=== PATIENT | male | born 1965 | race Caucasian/White ===

== ENCOUNTER 2017-01-15 08:18 | Emergency (ER) | payer OTHER ==
[~2017-01-15] VITALS: Ht 167.6 cm; Wt 56.0 kg
[~2017-01-15 08:18] MED LIST: BACL10TA PO; GABA300C16 PO; HYDR-3720 PO
[2017-01-15 08:20] VITALS: Ht 167.6 cm; Wt 56.0 kg
[2017-01-15] MEDS ORDERED: KETOROLAC 30 MG INJ IV STA (08:53)
[2017-01-15] MEDS ORDERED: SOD CHLORIDE 0.9% 1,000 ML IV STA (08:53)
[2017-01-15] MEDS ORDERED: ONDANSETRON 4 MG INJ IV STA (08:53)
[2017-01-15 09:19] LABS: BASOPHIL # 0.1 10^3/ul (0.0-0.1); BASOPHILS % 0.7 % (0.0-2.0); EOSINOPHILS # 0.2 10^3/ul (0.0-0.5); EOSINOPHILS % 2.7 % (0.0-7.0); HEMOGLOBIN 13.6 g/dl (14.0-18.0); LYMPHOCYTES # 1.9 10^3/ul (0.8-2.9); MEAN CORPUSCULAR HEMOGLOBIN 32.4 pg (29.0-33.0); MEAN CORPUSCULAR VOLUME 95.2 fl (82.0-101.0); MEAN PLATELET VOLUME 10.5 fl (7.4-10.4); MONOCYTE # 0.7 10^3/ul (0.3-0.9); MONOCYTES % 9.3 % (0.0-11.0); PLATELET COUNT 231 10^3/UL (140-415); RED CELL DISTRIBUTION WIDTH 12.3 % (11.5-14.5); WHITE BLOOD COUNT 7.6 10^3/ul (4.8-10.8)
[2017-01-15 09:38] LABS: ADD UMIC YES; UR ASCORBIC ACID NEGATIVE (NEGATIVE); UR BACTERIA FEW /HPF (NONE SEEN); UR BILIRUBIN (Dip) NEGATIVE (NEGATIVE); UR BLOOD (Dip) 3+ mg/dL (NEGATIVE); UR CLARITY CLEAR (CLEAR); UR COLOR YELLOW (YELLOW); UR GLUCOSE (Dip) NEGATIVE (NEGATIVE); UR KETONES (Dip) NEGATIVE (NEGATIVE); UR LEUKOCYTE ESTERASE (Dip) NEGATIVE Leu/ul (NEGATIVE); UR MUCUS FEW /HPF (NONE SEEN); UR NITRITE (Dip) NEGATIVE (NEGATIVE); UR RBC > 182 /HPF (0-5); UR SPECIFIC GRAVITY (Dip) 1.006 (1.003-1.030); UR TOTAL PROTEIN (Dip) NEGATIVE (NEGATIVE); UR UROBILINOGEN (Dip) NEGATIVE (NEGATIVE)
[2017-01-15 09:47] LABS: ALBUMIN 4.2 g/dl (3.3-4.9); ALBUMIN/GLOBULIN RATIO 1.55; CALCIUM 9.3 mg/dl (8.4-10.2); CREATININE 0.97 mg/dl (0.61-1.24); POTASSIUM 4.1 mmol/L (3.5-5.1); TOTAL PROTEIN 6.9 g/dl (6.1-8.1)
--- NOTE | 2017-01-15 10:07 | ERA ---
ER Documentation Chief Complaint Date/Time DATE: 01/15/17 TIME: 09:59 Chief Complaint LEFT FLANK PAIN SINCE YESTERDAY BLOOD IN URINE, HX KIDNEY STONES HPI This is a 51-year-old male with a past medical history of multiple frequent recurrent kidney stones who is presenting with concerns of a kidney stone. The patient has endorsed mild right sided flank discomfort but no significant pain. His biggest concern is that he developed hematuria yesterday. He describes it as bright red blood. He was placed on an IV fluid in the emergency department, and he states that his urine has nearly completely cleared up, which she feels is because of fluid he received. At this time, the patient denies any fever or chills. He has had some mild nausea, but that went away. He has not vomited. He denies chest pain or trouble breathing. He denies abdominal pain or radiating flank pain. He denies any changes to bowel movements. He denies any weakness or numbness or tingling to the face or extremities. ROS All systems reviewed and are negative except as per history of present illness. Medications Home Meds Reported Medications Hydrocodone Bit-Acetaminophen* ([place]*) 7.5-325 Tablet, 1 TAB PO TID Y for PAIN , TAB 11/29/15 Gabapentin* (Gabapentin*) 300 Mg Capsule, 300 MG PO BID, CAP 09/14/14 Baclofen* (Baclofen*) 10 Mg Tablet, 10 MG PO BID, TAB 09/14/14 Allergies Allergies: Coded Allergies: prochlorperazine edisylate (Verified Allergy, Unknown, 01/15/17) prochlorperazine maleate (Verified Allergy, Unknown, 01/15/17) PMhx/Soc History of Surgery: Yes (LT FEMUR, APPENDECTOMY) Anesthesia Reaction: No Hx Neurological Disorder: No Hx Respiratory Disorders: No Hx Cardiac Disorders: No Hx Psychiatric Problems: No Hx Miscellaneous Medical Probl: Yes (hx of kidney stones) Hx Alcohol Use: No Hx Substance Use: Yes (DAILY MARIJUANA ) Hx Tobacco Use: Yes (1-2 CIGARETTES/DAY ) Smoking Status: Current every day smoker FmHx Family History: No diabetes Physical Exam Vitals Vital Signs Date Time Temp Pulse Resp B/P Pulse Ox O2 Delivery O2 Flow Rate FiO2 01/15/17 08:20 98.5 83 20 144/87 98 Physical Exam Const: No apparent distress, well-nourished, well-developed Head: Atraumatic Eyes: Normal Conjunctiva ENT: Normal External Ears, Nose and Mouth. Neck: Full range of motion..~ No meningismus. Resp: Clear to auscultation bilaterally Cardio: Regular rate and rhythm, no murmurs Abd: Soft, non tender, non distended. Normal bowel sounds Skin: No petechiae or rashes Back: No midline or flank tenderness Ext: No cyanosis, or edema Neur: Awake and alert Psych: Normal Mood and Affect Result Diagram: 01/15/1790401/15/17904 Results 24 hrs Laboratory Tests Test 01/15/17 09:05 White Blood Count 7.610^3/ul Red Blood Count 4.2010^6/ul Hemoglobin 13.6g/dl Hematocrit 40.0% Mean Corpuscular Volume 95.2fl Mean Corpuscular Hemoglobin 32.4pg Mean Corpuscular Hemoglobin Concent 34.0g/dl Red Cell Distribution Width 12.3% Platelet Count 64069^3/UL Mean Platelet Volume 10.5fl Neutrophils % 62.0% Lymphocytes % 25.0% Monocytes % 9.3% Eosinophils % 2.7% Basophils % 0.7% Nucleated Red Blood Cells % 0.0/100WBC Neutrophils # (Manual) 4.710^3/ul Lymphocytes # 1.910^3/ul Monocytes # 0.710^3/ul Eosinophils # 0.210^3/ul Basophils # 0.110^3/ul Nucleated Red Blood Cells # 0.010^3/ul Urine Color YELLOW Urine Clarity CLEAR Urine pH 6.0 Urine Specific [place] 1.006 Urine Ketones NEGATIVEmg/dL Urine Nitrite NEGATIVEmg/dL Urine Bilirubin NEGATIVEmg/dL Urine Urobilinogen NEGATIVEmg/dL Urine Leukocyte Esterase NEGATIVELeu/ul Urine Microscopic RBC > 182/HPF Urine Microscopic WBC 11/HPF Urine Bacteria FEW/HPF Urine Mucus FEW/HPF Urine Hemoglobin 3+mg/dL Urine Glucose NEGATIVEmg/dL Urine Total Protein NEGATIVEmg/dl Sodium Level 143mmol/L Potassium Level 4.1mmol/L Chloride Level 109mmol/L Carbon Dioxide Level 27mmol/L Anion Gap 11 Blood Urea Nitrogen 12mg/dl Creatinine 0.97mg/dl Glucose Level 83mg/dl Calcium Level 9.3mg/dl Total Bilirubin 0.0mg/dl Direct Bilirubin 0.00mg/dl Indirect Bilirubin 0.0mg/dl Aspartate Amino Transf (AST/SGOT) 26IU/L Alanine Aminotransferase (ALT/SGPT) 29IU/L Alkaline Phosphatase 86IU/L Total Protein 6.9g/dl Albumin 4.2g/dl Globulin 2.70g/dl Albumin/Globulin Ratio 1.55 Current Medications Medications (Trade) Dose Ordered Sig/Hank Route PRN Reason Start Time Stop Time Status Last Admin Dose Admin Sodium Chloride (NS) 1,000 ml @ 1,000 mls/hr Q1H STAT IV 01/15/17 08:53 01/15/17 09:52 DC 01/15/17 09:03 Ondansetron HCl (Zofran Inj) 4 mg ONCE STAT IV 01/15/17 08:53 01/15/17 08:54 DC 01/15/17 09:02 Ketorolac Tromethamine (Toradol) 30 mg ONCE STAT IV 01/15/17 08:53 01/15/17 08:54 DC 01/15/17 09:02 Procedures/MDM The patient's presenting with flank pain. The patient has a history of kidney stones, and I do suspect a kidney stone today. Blood work will be obtained and reviewed to evaluate for signs of infection as well as renal function. In discussing with the patient, the decision was made to avoid a CAT scan if possible as he has had many CAT scans in the past, and his stones typically pass on their own anyway. The patient's blood work showed no leukocytosis or left shift. The patient is not anemic. The patient's CMP is unremarkable. The patient's renal function is within normal limits. The patient does not appear dehydrated, and his BUN is normal. The patient's urinalysis does indicate hematuria. There were significant amount of RBCs in the urine. There were 11 WBCs with few bacteria, but at this time I do not suspect an infection. A urine culture will be sent off, and the patient will need to be notified if the culture comes back positive. The patient was given IV fluids, Toradol and Zofran in the emergency department. His discomfort resolved. The patient is concerned of taking ibuprofen secondary to epigastric discomfort when taking it. We will trial a prescription of naproxen. The patient will also be given a prescription for Flomax. The patient does have a urologist and will call to schedule an appointment. He should follow-up with his urologist or his primary care physician in 2-3 days. He will be given precautions with which to return to the emergency department. Departure Diagnosis: Primary Impression: Hematuria Qualified Code: R31.9 - Hematuria, unspecified type Additional Impression: Flank pain Condition: CARLEE Vera MD Jan 15, 2017 10:07
[2017-01-15] MEDS ORDERED: TAMS-14 PO (11:57)
[2017-01-15] MEDS ORDERED: NAPR-260 PO (11:57)
[2017-01-15 12:27] VITALS: BP 148/61; PULSE 56; RESP 20
== END 2017-01-15 12:29 | disposition home or self-care (01) ==
LOC: E/R 08:18
DX: R31.9 Hematuria, unspecified (principal)
CPT/HCPCS: 36415; 80053; 81001; 85025; 96374; 96375; J1885; J2405; J7030; Z7502

== ENCOUNTER 2017-03-12 14:40 | Emergency (ER) | payer OTHER ==
[~2017-03-12] VITALS: Ht 172.7 cm; Wt 58.1 kg
[~2017-03-12 14:40] MED LIST changes: +NAPR-260 PO; +TAMS-14 PO
[2017-03-12 14:42] VITALS: Ht 172.7 cm; Wt 58.1 kg
[2017-03-12] MEDS ORDERED: HYDROmorphONE 1 MG/ML SYG ONE (16:57)
[2017-03-12] MEDS ORDERED: ONDANSETRON 4 MG INJ ONE (16:57)
[2017-03-12] MEDS ORDERED: KETOROLAC 30 MG INJ ONE (17:12)
[2017-03-12] MEDS ORDERED: KETOROLAC 30 MG INJ IV SCH (18:00)
[2017-03-12] MEDS ORDERED: HYDROmorphONE 1 MG/ML SYG IV ONE (18:00)
[2017-03-12] MEDS ORDERED: ONDANSETRON 4 MG INJ IV SCH (18:00)
--- NOTE | 2017-03-12 19:26 | ERD ---
ER Documentation Chief Complaint Chief Complaint LT SIDE FLANK PAIN WITH NAUSEA , VOMITING X 3 HPI Patient is a 52-year-old male with a history of kidney stone who presents with left-sided flank pain. The patient says that he has a history of kidney stones and that this would be his "second stone in 1 week". He said that he missed his urology appointment scheduled for today with Dr. Rodríguez. He missed the appointment because of the pain so he came to the emergency department. He denies fevers. The pain is sharp in nature and left-sided and comes and goes. ROS All systems reviewed and are negative except as per history of present illness. Medications Home Meds Active Scripts Naproxen* (Naprosyn*) 500 Mg Tablet, 500 MG PO BID Y for PAIN AND/OR INFLAMMATION, #30 TAB Prov:CARLEE TINEO MD 01/15/17 Tamsulosin Hcl* (Flomax*) 0.4 Mg Cap.er.24h, 0.4 MG PO QPM, #14 CAP Prov:CARLEE TINEO MD 01/15/17 Reported Medications Hydrocodone Bit-Acetaminophen* ([place]*) 7.5-325 Tablet, 1 TAB PO TID Y for PAIN , TAB 11/29/15 Gabapentin* (Gabapentin*) 300 Mg Capsule, 300 MG PO BID, CAP 09/14/14 Baclofen* (Baclofen*) 10 Mg Tablet, 10 MG PO BID, TAB 09/14/14 Allergies Allergies: Coded Allergies: prochlorperazine edisylate (Verified Allergy, Unknown, 01/15/17) prochlorperazine maleate (Verified Allergy, Unknown, 01/15/17) PMhx/Soc History of Surgery: Yes (LT FEMUR, APPENDECTOMY) Anesthesia Reaction: No Hx Neurological Disorder: No Hx Respiratory Disorders: No Hx Cardiac Disorders: No Hx Psychiatric Problems: No Hx Miscellaneous Medical Probl: Yes (hx of kidney stones) Hx Alcohol Use: No Hx Substance Use: Yes (DAILY MARIJUANA ) Hx Tobacco Use: Yes (1-2 CIGARETTES/DAY ) FmHx Family History: No diabetes Physical Exam Vitals Vital Signs Date Time Temp Pulse Resp B/P Pulse Ox O2 Delivery O2 Flow Rate FiO2 03/12/17 14:42 97.9 68 18 146/82 98 Physical Exam Const: Moderate distress secondary to pain Head: Atraumatic Eyes: Normal Conjunctiva ENT: Normal External Ears, Nose and Mouth. Neck: Full range of motion..~ No meningismus. Resp: Clear to auscultation bilaterally Cardio: Regular rate and rhythm, no murmurs Abd: Soft, non tender, non distended. Normal bowel sounds Skin: No petechiae or rashes Back: No midline or flank tenderness Ext: No cyanosis, or edema Neur: Awake and alert Psych: Normal Mood and Affect Results 24 hrs Current Medications Medications (Trade) Dose Ordered Sig/Hank Route PRN Reason Start Time Stop Time Status Last Admin Dose Admin Hydromorphone HCl (Dilaudid) 1 mg ONCE ONCE IV 03/12/17 18:00 03/12/17 18:01 DC Ketorolac Tromethamine (Toradol) 30 mg ONCE IV 03/12/17 18:00 03/12/17 18:01 DC Ondansetron HCl (Zofran Inj) 4 mg ONCE IV 03/12/17 18:00 03/12/17 18:01 DC Procedures/MDM CT scan shows 0.5 x 0.7 cm stone in the left UVJ per radiology. Smoking Cessation Therapy: Pt. was lectured for greater than 3 minutes on the health risks of continued smoking and the benefits of cessation. Patient is a 52-year-old male with a history of kidney stone presents with kidney stone. He has a large left-sided kidney stone which is likely the cause of his pain. He feels better after Dilaudid, Toradol, and Zofran. I believe that outpatient management is appropriate but the patient will need follow-up with Dr. Rodríguez from urology as he would benefit from lithotripsy. The patient will be given a prescription for Cipro, ibuprofen, and [place]. At this point I doubt infected stone and I believe outpatient management is appropriate. The patient can return for any worsening symptoms. Departure Diagnosis: Primary Impression: Flank pain Additional Impression: Kidney stone on left side Condition: IRVIN Hernandez MD Mar 12, 2017 19:26
--- NOTE | 2017-03-13 06:51 | RADRPT ---
PROCEDURE: CT Abdomen and Pelvis without contrast. CLINICAL INDICATION: Abdominal and pelvic pain. Left flank pain. TECHNIQUE: CT scan of the abdomen and pelvis without contrast was performed. Coronal and sagittal reformatted images were obtained from the axial source images. Images were reviewed on a high-[employer] PACS workstation. Total exam DLP is 425.06 mGy-cm. CTDIvol is 7.93 mGy. One or more of the fo llowing dose reduction techniques were used: Automated exposure control, adjustment of the mA and/or kV according to patient size, use of iterative reconstruction technique. COMPARISON: CT scan of the abdomen and pelvis dated 11/29/2015. FINDINGS: The lung bases are normal. There is no pleural effusion. The heart size is normal and there is no p ericardial effusion. The liver is normal in size and attenuation. There is no focal hepatic lesion. The gallbladder and bile ducts are normal. The spleen is normal in size. There is no focal splenic lesion. Both adrenals are normal with no enlargement or mass. The pancreas is unremarkable with no mass or evidence of pancreatitis. There is no renal mass. There are multiple small nonobstructing bilateral renal calculi. There are 2 calculi on the right measuring 0.4 cm and 0.4 cm. There are 6 calculi on the left measuring between 0.1 cm and 0.5 cm. There are slightly fewer intra renal calculi when compared with the prior study. There is a new calculus at the left ureterovesicle junction measuring 0.5 x 0.7 cm. There is modera te left hydroureteronephrosis. There is no right hydronephrosis and the right ureter is normal. The abdominal aorta is not dilated. There is calcification in the aorta consistent with atherosclero sis There is no retroperitoneal lymphadenopathy or mass. There is no pelvic lymphadenopathy or mass. The bladder is unremarkable. The periappendiceal region is unremarkable with no evidence of appendicitis. There is diverticulosis of the colon without evidence of diverticulitis. There is no free fluid or free gas. There are degenerative changes of the spine. There is a matty in the shaft of the left femur. There is no acute fracture or lytic lesion. IMPRESSION: 1. Multiple nonobstructing bilateral renal calculi. 2. Moderate left hydroureteronephrosis due to an obstructing 0.5 x 0.7 cm calculus at the left uret erovesicle junction. 3. No right hydronephrosis. 4. Atherosclerosis. 5. Diverticulosis of the colon without evidence of diverticulitis. 6. Degenerative changes of the spine. 7. Matty in the shaft of the left femur. RPTAT: QQ .Jasmeet Moy MD, Date Time Electronically viewed and signed by .Jasmeet Moy MD, on 03/12/2017 18:13 .R/
== END 2017-03-12 19:05 | disposition home or self-care (01) ==
LOC: E/R 14:40
DX: N20.0 Calculus of kidney (principal); F17.210 Nicotine dependence, cigarettes, uncomplicated
CPT/HCPCS: 74176; 80053; 80076; 83690; 85025; 85610; 85730; 96374; 96375; J1170; J1885; J2405; Z7502

== ENCOUNTER 2017-03-26 14:07 | Emergency (ER) | payer OTHER ==
[~2017-03-26] VITALS: Ht 165.1 cm; Wt 56.2 kg
[2017-03-26 14:16] VITALS: Ht 165.1 cm; Wt 56.2 kg
[2017-03-26] MEDS ORDERED: KETOROLAC 30 MG INJ IV STA (15:50)
[2017-03-26] MEDS ORDERED: ONDANSETRON 4 MG INJ IV STA (15:50)
[2017-03-26] MEDS ORDERED: SOD CHLORIDE 0.9% 1,000 ML IV STA (15:50)
[2017-03-26] MEDS ORDERED: morphine 4 MG/ML VIAL IV STA (15:50)
[2017-03-26 16:09] LABS: BASOPHIL # 0.1 10^3/ul (0.0-0.1); BASOPHILS % 0.5 % (0.0-2.0); EOSINOPHILS # 0.1 10^3/ul (0.0-0.5); EOSINOPHILS % 0.9 % (0.0-7.0); HEMATOCRIT 40.2 % (42.0-52.0); HEMOGLOBIN 13.7 g/dl (14.0-18.0); LYMPHOCYTES % 21.4 % (15.0-51.0); MEAN CORPUSCULAR HEMOGLOBIN 31.6 pg (29.0-33.0); MEAN CORPUSCULAR HGB CONC 34.1 g/dl (32.0-37.0); MEAN CORPUSCULAR VOLUME 92.8 fl (82.0-101.0); MEAN PLATELET VOLUME 10.1 fl (7.4-10.4); MONOCYTE # 0.7 10^3/ul (0.3-0.9); MONOCYTES % 7.8 % (0.0-11.0); NEUTROPHIL # 6.3 10^3/ul (1.6-7.5); NEUTROPHILS % 69.2 % (39.0-77.0); PLATELET COUNT 270 10^3/UL (140-415); RED BLOOD COUNT 4.33 10^6/ul (4.70-6.10); RED CELL DISTRIBUTION WIDTH 11.9 % (11.5-14.5); WHITE BLOOD COUNT 9.2 10^3/ul (4.8-10.8)
[2017-03-26 16:14] LABS: ALBUMIN 4.4 g/dl (3.3-4.9); ALBUMIN/GLOBULIN RATIO 1.62; BILIRUBIN,INDIRECT 0.2 mg/dl (0-1.1); BILIRUBIN,TOTAL 0.2 mg/dl (0.2-1.3); CALCIUM 10.3 mg/dl (8.4-10.2); CREATININE 0.9 mg/dl (0.61-1.24); POTASSIUM 3.6 mmol/L (3.5-5.1); TOTAL PROTEIN 7.1 g/dl (6.1-8.1)
--- NOTE | 2017-03-26 16:35 | RADRPT ---
PROCEDURE: Renal US. CLINICAL INDICATION: Flank pain TECHNIQUE: Multiple sonographic images of the kidneys were obtained. The images were reviewed on a PACS workstation. COMPARISON: No prior studies are available for comparison. FINDINGS: The kidneys are well visualized. The right kidney measures 10.7 cm. The left kidney measures 10.5 cm . A nonobstructing right renal calculus is seen measuring 6.7 mm in maximal diameter. Multiple nonob structing left renal calculi are seen with the largest measuring 4.2 mm. There are no other focal ar eas of abnormal echogenicity. There is no evidence for obstructive uropathy. Low level echoes are se en in the posterior portion of the urinary bladder. The remainder of the visualized urinary bladder is otherwise unremarkable. IMPRESSION: 1. Bilateral nonobstructing renal calculi. 2. Low level echoes in the posterior portion of the urinary bladder which may represent debris. RPTAT: HPNM Physician Karlee Date Time Electronically viewed and signed by Physician Karlee on 03/26/2017 16:34 /
[2017-03-26] MEDS ORDERED: METOCLOPRAMIDE 10 MG INJ IV ONE (17:00)
[2017-03-26] MEDS ORDERED: DIPHENHYDRAMINE 50 MG INJ IV ONE (17:00)
[2017-03-26] MEDS ORDERED: BUTA1CAP38 PO (17:09)
[2017-03-26] MEDS ORDERED: ONDA4TAB14 PO (17:09)
[2017-03-26] MEDS ORDERED: NAPR-688 PO (17:09)
[2017-03-26] MEDS ORDERED: PROC10TA10 PO (17:09)
[2017-03-26] MEDS ORDERED: HYDR-906 PO (17:09)
--- NOTE | 2017-03-26 17:21 | ERD ---
ER Documentation Chief Complaint Chief Complaint right flank pain since 10am, hx kidney stones HPI This 52-year-old male presents with right flank pain that he noticed at 10 AM. He has a history of kidney stones and recently passed one. He has no anterior abdominal pain. Also has a headache is in the base of his neck that he has had on and off for a long time. His headache began today. He has no neurological deficits. No fevers or chills. ROS All systems reviewed and are negative except as per history of present illness. Medications Home Meds Active Scripts Prochlorperazine* (Prochlorperazine*) 10 Mg Tablet, 10 MG PO Q6H Y for NAUSEA, # 14 TAB Prov:ANKUSH FAROOQ DO 03/26/17 Tikhvlggec-Wbgxpfluvdnqq-Rslkfrbg* (Fioricet*) 50-300-40 Mg Capsule, 1 CAP PO Q4H Y for HEADACHE, #10 CAP Prov:ANKUSH FAROOQ DO 03/26/17 Ondansetron (Ondansetron Odt) 4 Mg Tab.rapdis, 4 MG PO Q6H Y for NAUSEA AND/OR VOMITING, #10 TAB Prov:ANKUSH FAROOQ DO 03/26/17 Naproxen* (Naproxen*) 500 Mg Tablet, 500 MG PO BID Y for PAIN, #20 TAB Prov:ANKUSH FAROOQ DO 03/26/17 Hydrocodone/Acetaminophen ([place] 5-325 Tablet) 1 Each Tablet, 1 EACH PO Q6, #20 TAB Prov:ANKUSH FAROOQ DO 03/26/17 Naproxen* (Naprosyn*) 500 Mg Tablet, 500 MG PO BID Y for PAIN AND/OR INFLAMMATION, #30 TAB Prov:CARLEE TINEO MD 01/15/17 Tamsulosin Hcl* (Flomax*) 0.4 Mg Cap.er.24h, 0.4 MG PO QPM, #14 CAP Prov:CARLEE TINEO MD 01/15/17 Reported Medications Hydrocodone Bit-Acetaminophen* ([place]*) 7.5-325 Tablet, 1 TAB PO TID Y for PAIN , TAB 11/29/15 Gabapentin* (Gabapentin*) 300 Mg Capsule, 300 MG PO BID, CAP 09/14/14 Baclofen* (Baclofen*) 10 Mg Tablet, 10 MG PO BID, TAB 09/14/14 Allergies Allergies: Coded Allergies: prochlorperazine edisylate (Verified Allergy, Unknown, 01/15/17) prochlorperazine maleate (Verified Allergy, Unknown, 01/15/17) PMhx/Soc History of Surgery: Yes (appy, bri in right femur.) Anesthesia Reaction: No Hx Neurological Disorder: No Hx Respiratory Disorders: No Hx Cardiac Disorders: No Hx Psychiatric Problems: No Hx Miscellaneous Medical Probl: No Hx Alcohol Use: No Hx Substance Use: No Hx Tobacco Use: Yes Smoking Status: Current some day smoker Physical Exam Vitals Vital Signs Date Time Temp Pulse Resp B/P Pulse Ox O2 Delivery O2 Flow Rate FiO2 03/26/17 15:23 98.0 70 18 144/92 98 Room Air 03/26/17 14:16 98.0 76 22 144/92 98 Physical Exam Const: [] Moderate distress, rocking back and forth appears uncomfortable Head: Atraumatic Eyes: Normal Conjunctiva, EOMI, PERRLA ENT: Normal External Ears, Nose and Mouth. Neck: Full range of motion..~ No meningismus. Abd: Soft, non tender, non distended. Normal bowel sounds Skin: No petechiae or rashes Back: No midline tenderness, mild right flank tenderness. Ext: No cyanosis, or edema Neur: Awake and alert oriented 3, cranial nerves II through XII intact, no cerebellar deficits, normal gait Psych: Normal Mood and Affect Result Diagram: 03/26/17 1600 03/26/17 1600 Results 24 hrs Laboratory Tests Test 03/26/17 16:00 White Blood Count 9.210^3/ul Red Blood Count 4.3310^6/ul Hemoglobin 13.7g/dl Hematocrit 40.2% Mean Corpuscular Volume 92.8fl Mean Corpuscular Hemoglobin 31.6pg Mean Corpuscular Hemoglobin Concent 34.1g/dl Red Cell Distribution Width 11.9% Platelet Count 47265^3/UL Mean Platelet Volume 10.1fl Neutrophils % 69.2% Lymphocytes % 21.4% Monocytes % 7.8% Eosinophils % 0.9% Basophils % 0.5% Nucleated Red Blood Cells % 0.0/100WBC Neutrophils # 6.310^3/ul Lymphocytes # 2.010^3/ul Monocytes # 0.710^3/ul Eosinophils # 0.110^3/ul Basophils # 0.110^3/ul Nucleated Red Blood Cells # 0.010^3/ul Sodium Level 146mmol/L Potassium Level 3.6mmol/L Chloride Level 104mmol/L Carbon Dioxide Level 28mmol/L Anion Gap 18 Blood Urea Nitrogen 15mg/dl Creatinine 0.90mg/dl Glucose Level 116mg/dl Calcium Level 10.3mg/dl Total Bilirubin 0.2mg/dl Direct Bilirubin 0.00mg/dl Indirect Bilirubin 0.2mg/dl Aspartate Amino Transf (AST/SGOT) 24IU/L Alanine Aminotransferase (ALT/SGPT) 28IU/L Alkaline Phosphatase 73IU/L Total Protein 7.1g/dl Albumin 4.4g/dl Globulin 2.70g/dl Albumin/Globulin Ratio 1.62 Lipase 625U/L Current Medications Medications (Trade) Dose Ordered Sig/Hank Route PRN Reason Start Time Stop Time Status Last Admin Dose Admin Sodium Chloride (NS) 1,000 ml @ 1,000 mls/hr Q1H STAT IV 03/26/17 15:50 03/26/17 16:49 DC 03/26/17 16:00 Morphine Sulfate (morphine) 4 mg ONCE STAT IV 03/26/17 15:50 03/26/17 15:52 DC 03/26/17 16:00 Ondansetron HCl (Zofran Inj) 4 mg ONCE STAT IV 03/26/17 15:50 03/26/17 15:52 DC 03/26/17 15:59 Ketorolac Tromethamine (Toradol) 30 mg ONCE STAT IV 03/26/17 15:50 03/26/17 15:52 DC 03/26/17 15:59 Diphenhydramine HCl (Benadryl) 12.5 mg ONCE ONCE IV 03/26/17 17:00 03/26/17 17:01 DC 03/26/17 16:56 Metoclopramide HCl (Reglan) 10 mg ONCE ONCE IV 03/26/17 17:00 03/26/17 17:01 DC 03/26/17 16:57 Procedures/MDM Flank pain possibly secondary to recently passed stone with residual pain. Patient was given a liter of normal saline as well as morphine and Toradol which completely resolved his flank pain. He also had a headache which still persisted was given headache medications of Benadryl 2.5 mg IV and Reglan 10 mg IV which resolved the headache within minutes. Patient has an elevated lipase as well with no anterior abdominal pain. Going to discharge him with urology follow-up as well as [facility] follow-up and recommendations to see a neurologist for his headaches. He declined a CAT scan of his head because he had had one earlier this year which did not show any pathology. Bilateral renal ultrasound interpretation: I see no high no hydronephrosis however there are multiple stones within the kidney. No other acute pathology seen. Departure Diagnosis: Primary Impression: Renal colic on right side Additional Impressions: Acute headache Elevated lipase Condition: Stable Patient Instructions: Headache, Unspecified, Kidney Stone W/ Colic Additional Instructions: Call your primary care doctor TOMORROW for an appointment during the next 1-2 days. And get a referral for a urologist [place]. See the doctor sooner or return here if your condition worsens before your appointment time. ANKUSH FAROOQ DO Mar 26, 2017 17:21
[2017-03-26 17:29] LABS: ADD UMIC NO; UR ASCORBIC ACID NEGATIVE (NEGATIVE); UR BILIRUBIN (Dip) NEGATIVE (NEGATIVE); UR BLOOD (Dip) NEGATIVE (NEGATIVE); UR CLARITY CLEAR (CLEAR); UR COLOR YELLOW (YELLOW); UR GLUCOSE (Dip) NEGATIVE (NEGATIVE); UR KETONES (Dip) TRACE mg/dL (NEGATIVE); UR LEUKOCYTE ESTERASE (Dip) NEGATIVE Leu/ul (NEGATIVE); UR NITRITE (Dip) NEGATIVE (NEGATIVE); UR SPECIFIC GRAVITY (Dip) 1.016 (1.003-1.030); UR TOTAL PROTEIN (Dip) NEGATIVE (NEGATIVE); UR UROBILINOGEN (Dip) NEGATIVE (NEGATIVE)
[2017-03-26 18:00] VITALS: BP 148/90; PULSE 65; RESP 16; TEMP 98.2
== END 2017-03-26 18:09 | disposition home or self-care (01) ==
LOC: E/R 14:07
DX: N23 Unspecified renal colic (principal); R51 Headache; R74.8 Abnormal levels of other serum enzymes; F17.210 Nicotine dependence, cigarettes, uncomplicated
CPT/HCPCS: 36415; 76775; 80053; 81003; 83690; 85025; 96374; 96375; J1200; J1885; J2270; J2405; J2765; J7030; Z7502

== ENCOUNTER 2017-05-03 15:52 | Emergency (ER) | END 2017-05-03 20:24 | disposition home or self-care (01) ==

== ENCOUNTER 2017-07-16 17:21 | Emergency (ER) | END 2017-07-16 18:51 | disposition left against medical advice (07) ==

== ENCOUNTER 2017-09-26 09:41 | Emergency (ER) | END 2017-09-26 11:32 | disposition home or self-care (01) ==

== ENCOUNTER 2017-09-28 09:04 | Emergency (ER) | END 2017-09-28 14:01 | disposition left against medical advice (07) ==

== ENCOUNTER 2018-09-21 14:59 | Emergency (ER) | payer OTHER ==
[~2018-09-21] VITALS: Wt 56.8 kg
[~2018-09-21 14:59] MED LIST changes: +BUTA1CAP38 PO; +CIPR500T4 PO; +CLIN300C10 PO; +HYDR-4011 PO; -NAPR-260 PO; +NAPR-688 PO; +NAPR-985 PO; +ONDA4TAB14 PO; +ONDA4TAB8 PO; +PROC10TA10 PO
[2018-09-21] MEDS ORDERED: SOD CHLORIDE 0.9% 1,000 ML IV STA (16:19)
[2018-09-21] MEDS ORDERED: ONDANSETRON 4 MG INJ IV STA (16:19)
[2018-09-21] MEDS ORDERED: KETOROLAC 30 MG INJ IV STA (16:19)
[2018-09-21] MEDS ORDERED: HYDROmorphONE 1 MG/ML SYG IV STA (16:19)
[2018-09-21] MEDS ORDERED: LORAZEPAM 2 MG INJ IV ONE (16:30)
[2018-09-21] MEDS ORDERED: TAMSULOSIN (SR) 0.4 MG CAP PO ONE (16:30)
--- NOTE | 2018-09-21 17:39 | ERD ---
ER Documentation Chief Complaint Chief Complaint L FLANK PAIN RADIATING TO L LOWER ABD FOR 2 HOURS. HX OF KIDNEY STONE HPI 53-year-old gentleman with long-standing history of renal stones who presents to the emergency room with renal colic on the left side. Describes left-sided flank pain radiating up to his shoulder that is very similar in character, location and intensity to renal stones in the past. The patient has generally passed his stones on his own without intervention. Patient denies any fevers or chills. The pain is 10 out of 10. He denies any chest pain or shortness of breath. Symptoms present over the past 2 hours. ROS All systems reviewed and are negative except as per history of present illness. Medications Home Meds Active Scripts Naloxone HCl nasal spray (Narcan 4 mg/0.1 mL nasal) 4 Mg Clever, 4 MG NS .Q2-3MIN for OPIOID OVERDOSE, #2 SPRAY 0 Refills Clever 0.1 mL into one nostril. Repeat with second device into other nostril after 2-3 minutes if no or minimal response Prov:BREANA ALSTON MD 09/21/18 Ondansetron (Ondansetron Odt) 4 Mg Tab.rapdis, 4 MG PO Q6H PRN for NAUSEA AND/OR VOMITING, #20 TAB Prov:BREANA ALSTON MD 09/21/18 Tamsulosin Hcl* (Flomax*) 0.4 Mg Cap.er.24h, 0.4 MG PO QPM for 5 Days, CAP Prov:BREANA ALSTON MD 09/21/18 Ibuprofen* (Motrin*) 800 Mg Tab, 800 MG PO Q6H PRN for PAIN AND OR ELEVATED TEMP, #30 TAB Prov:BREANA ALSTON MD 09/21/18 Hydrocodone/Acetaminophen ([place] 10-325 Tablet) 1 Each Tablet, 1 TAB PO Q6H PRN for PAIN, #7 TAB Prov:BREANA ALSTON MD 09/21/18 Naproxen* (Naprosyn*) 500 Mg Tablet, 500 MG PO BID PRN for PAIN AND/OR INFLAMMATION, #30 TAB Prov:CARLEE TINEO MD 01/15/17 Reported Medications Gabapentin* (Gabapentin*) 300 Mg Capsule, 300 MG PO BID, CAP 09/14/14 Baclofen* (Baclofen*) 10 Mg Tablet, 10 MG PO BID, TAB 09/14/14 Discontinued Reported Medications Hydrocodone Bit-Acetaminophen* ([place]*) 7.5-325 Tablet, 1 TAB PO TID PRN for PAIN, TAB 11/29/15 Discontinued Scripts Clindamycin Hcl* (Clindamycin Hcl*) 300 Mg Capsule, 300 MG PO TID for 7 Days, CAP Prov:RO HARTMANN PA-C 09/26/17 Hydrocodone/Acetaminophen ([place] 5-325 Tablet) 1 Each Tablet, 1 EACH PO TID PRN for SEVERE PAIN LEVEL 7-10, #12 TAB Prov:NELSON CLEMENT MD 05/03/17 Tamsulosin Hcl* (Flomax*) 0.4 Mg Cap.er.24h, 0.4 MG PO BID, #30 CAP Prov:NELSON CLEMENT MD 05/03/17 Ondansetron Hcl* (Zofran*) 4 Mg Tablet, 4 MG PO Q6H for NAUSEA AND/OR VOMITING, #15 TAB Prov:NELOSN CLEMENT MD 05/03/17 Ciprofloxacin Hcl* (Ciprofloxacin Hcl*) 500 Mg Tablet, 500 MG PO BID for 7 Days, TAB Prov:NELSON CLEMENT MD 05/03/17 Prochlorperazine* (Prochlorperazine*) 10 Mg Tablet, 10 MG PO Q6H PRN for NAUSEA, #14 TAB Prov:ANKUSH FAROOQ DO 03/26/17 Pdyfdvwodn-Rrouzbmwfwycy-Oazbbmsi* (Fioricet*) 50-300-40 Mg Capsule, 1 CAP PO Q4H PRN for HEADACHE, #10 CAP Prov:ANKUSH FAROOQ DO 03/26/17 Ondansetron (Ondansetron Odt) 4 Mg Tab.rapdis, 4 MG PO Q6H PRN for NAUSEA AND/OR VOMITING, #10 TAB Prov:ANKUSH FAROOQ DO 03/26/17 Naproxen* (Naproxen*) 500 Mg Tablet, 500 MG PO BID PRN for PAIN, #20 TAB Prov:ANKUSH FAROOQ DO 03/26/17 Hydrocodone/Acetaminophen ([place] 5-325 Tablet) 1 Each Tablet, 1 EACH PO Q6, #20 TAB Prov:ANKUSH FAROOQ DO 03/26/17 Tamsulosin Hcl* (Flomax*) 0.4 Mg Cap.er.24h, 0.4 MG PO QPM, #14 CAP Prov:CARLEE TINEO MD 01/15/17 Allergies Allergies: Coded Allergies: prochlorperazine edisylate (Verified Allergy, Unknown, 09/21/18) PMhx/Soc History of Surgery: No Anesthesia Reaction: No Hx Neurological Disorder: No Hx Respiratory Disorders: No Hx Cardiac Disorders: No Hx Psychiatric Problems: No Hx Miscellaneous Medical Probl: Yes (abscess to left jaw) Hx Alcohol Use: No Hx Substance Use: No Hx Tobacco Use: No Smoking Status: Never smoker FmHx Family History: No diabetes Physical Exam Vitals Vital Signs Date Temp Pulse Resp B/P (MAP) Pulse Ox O2 O2 Flow FiO2 Time Delivery Rate 09/21/18 98.5 67 18 160/100 99 15:00 (120) Physical Exam General: Anxious, tearful Head: Normocephalic, atraumatic. Eyes: Pupils equally reactive, EOM intact ENT: Moist mucous membranes Neck: Supple, no lymphadenopathy Respiratory: Lungs clear bilaterally, no distress Cardiovascular: RRR, no murmurs, rubs, or gallops Abdominal: Soft, non-tender, non-distended, no peritoneal signs : Deferred MSK: No edema, no unilateral swelling, 5/5 strength Neurologic: Alert and oriented, moving all extremities, normal speech, no focal weakness, no cerebellar signs Skin: No rash Psych: Normal mood Result Diagram: 09/21/18 1637 09/21/18 1637 Results 24 hrs Laboratory Tests Test 09/21/18 16:37 White Blood Count 9.7 10^3/ul Red Blood Count 4.86 10^6/ul Hemoglobin 15.4 g/dl Hematocrit 45.0 % Mean Corpuscular Volume 92.6 fl Mean Corpuscular Hemoglobin 31.7 pg Mean Corpuscular Hemoglobin Concent 34.2 g/dl Red Cell Distribution Width 12.2 % Platelet Count 265 10^3/UL Mean Platelet Volume 10.8 fl Immature Granulocytes % 0.300 % Neutrophils % 59.9 % Lymphocytes % 30.8 % Monocytes % 6.9 % Eosinophils % 1.5 % Basophils % 0.6 % Nucleated Red Blood Cells % 0.0 /100WBC Immature Granulocytes # 0.030 10^3/ul Neutrophils # 5.8 10^3/ul Lymphocytes # 3.0 10^3/ul Monocytes # 0.7 10^3/ul Eosinophils # 0.2 10^3/ul Basophils # 0.1 10^3/ul Nucleated Red Blood Cells # 0.0 10^3/ul Urine Color YELLOW Urine Clarity CLEAR Urine pH 6.0 Urine Specific [place] 1.016 Urine Ketones NEGATIVE mg/dL Urine Nitrite NEGATIVE mg/dL Urine Bilirubin NEGATIVE mg/dL Urine Urobilinogen 1+ mg/dL Urine Leukocyte Esterase NEGATIVE Alejandra/ul Urine Microscopic RBC 8 /HPF Urine Microscopic WBC 1 /HPF Urine Mucus FEW /HPF Urine Hemoglobin 1+ mg/dL Urine Glucose NEGATIVE mg/dL Urine Total Protein NEGATIVE mg/dl Sodium Level 142 mmol/L Potassium Level 3.7 mmol/L Chloride Level 107 mmol/L Carbon Dioxide Level 26 mmol/L Anion Gap 9 Blood Urea Nitrogen 10 mg/dl Creatinine 1.02 mg/dl Est Glomerular Filtrat Rate mL/min > 60 mL/min Glucose Level 143 mg/dl Calcium Level 10.1 mg/dl Current Medications Medications Dose Sig/Hank Start Time Status Last (Trade) Ordered Route PRN Stop Time Admin Dose Reason Admin Sodium 1,000 ml @ Q1H STAT 09/21/18 DC 09/21/18 Chloride 1,000 mls/hr IV 16:19 16:41 09/21/18 17:18 1 mg ONCE STAT 09/21/18 DC 09/21/18 Hydromorphone IV 16:19 16:39 HCl 09/21/18 16:20 (Dilaudid) Ondansetron 4 mg ONCE STAT 09/21/18 DC 09/21/18 HCl (Zofran IV 16:19 16:38 Inj) 09/21/18 16:20 Ketorolac 30 mg ONCE STAT 09/21/18 DC 09/21/18 Tromethamine IV 16:19 16:38 (Toradol) 09/21/18 16:20 Tamsulosin 0.4 mg ONCE ONCE 09/21/18 DC 09/21/18 HCl PO 16:30 17:01 (Flomax) 09/21/18 16:31 Lorazepam 0.5 mg ONCE ONCE 09/21/18 DC 09/21/18 (Ativan) IV 16:30 16:38 09/21/18 16:31 Procedures/MDM LAB INTERPRETATION: I reviewed the laboratory testing and it shows no evidence of acute process MEDICAL DECISION MAKING: The patient presents with signs and symptoms consistent with his baseline renal colic. Given the patient's history of recurrent stones without signs of infection or renal insufficiency I do not believe CT imaging of the abdomen pelvis is necessary. The risks of radiation greatly outweigh the benefits. The patient is asking for a CAT scan but I had a conversation discussing my reasoning and he is agreeable at this time. I do not believe there is an alternative diagnosis such as dissection, acute coronary syndrome or other acute intraconal process. Patient is very anxious and tearful and frustrated regarding the frequency of his kidney stones. He is not following with the urologist regularly. ER COURSE: * Patient was treated with IV fluids, pain medication, NSAIDs, Flomax, anxiolysis * Laboratory testing is unremarkable. The pain is well improved and the patient is standing at the door. It should be noted that throughout the patient's ER course he is extremely rude, threatening and aggressive towards staff that occasion. Patient was very demanding and verbally abusive to staff as well as security staff. Patient with multiple episodes of redirection provided for the patient. The patient's pain was much improved and he was ambulatory and requesting to leave. An IV was discontinued and the patient stated that he was going to walk to his car and drive. Patient was informed that he was given narcotics and cannot drive. The patient walked out regardless. Security was notified. If the patient is found getting into his vehicle security will contact police. CONSULTATION: None DISPOSITION PLAN: The patient does not have an identifiable emergent medical condition that warrants inpatient hospitalization at this time. The patient is deemed safe for discharge with outpatient follow-up. We discussed follow up with the patient's primary care doctor within 24 to 48 hours as needed. We also discussed return to the emergency room for worsening symptoms or worsening condition. Outpatient referral: Neurology Discharge Medications: [place], Zofran, Motrin, Flomax NARCOTIC MEDICATION: The patient has been prescribed a narcotic medication during this encounter. The patient has been warned about the use of narcotics. The patient should not drive or operate heavy machinery while taking this medication. The patient was also warned about the addictive properties of narcotic medications. Narcan prescription WAS provided given one of the following criteria were met: 1. More than 5 tablets of [place] 10 mg or 10 tablets of [place] 5 mg were prescribed. 2. Concomitant opiate and benzodiazepine prescriptions were provided. 3. There is evidence of prior history of opiate abuse or overdose. Departure Diagnosis: Primary Impression: Ureteral colic Condition: BREANA Nur MD September 21, 2018 17:39
[2018-09-21] MEDS ORDERED: HYDR-3980 PO (17:44)
[2018-09-21] MEDS ORDERED: IBUP800T48 PO (17:44)
[2018-09-21] MEDS ORDERED: ONDA4TAB14 PO (17:44)
[2018-09-21] MEDS ORDERED: NALO4SPR NS (17:44)
[2018-09-21] MEDS ORDERED: TAMS-14 PO (17:44)
[2018-09-21 18:23] VITALS: BP 145/70; PULSE 68; RESP 18
== END 2018-09-21 18:31 | disposition home or self-care (01) ==
LOC: E/R 14:59
DX: N23 Unspecified renal colic (principal); R40.2142 Coma scale, eyes open, spontaneous, at arrival to emergency department; R40.2362 Coma scale, best motor response, obeys commands, at arrival to emergency department; R40.2252 Coma scale, best verbal response, oriented, at arrival to emergency department
CPT/HCPCS: 36415; 80048; 81001; 85025; 87086; 96374; 96375; J1170; J1885; J2060; J2405; J7030; Z7502; Z7610